=== PATIENT | male | born 1955 | race Caucasian/White ===

== ENCOUNTER 2024-02-13 08:26 | Outpatient (CLI) | payer BC, MEDICARE, SELFPAY ==
--- NOTE | ~2024-02-13 | MR_ITS ---
EXAMINATION: MR knee LT wo con DATE: 02/13/2024 09:09 INDICATION: Left knee pain TECHNIQUE: Magnetic resonance imaging (MRI) of the left knee was performed without intravenous contra st. Sequences included coronal PD-weighted FSE, coronal PD-weighted FS FSE, sagittal T2-weighted FSE , sagittal PD-weighted FS FSE and axial PD weighted fat saturated FSE. COMPARISON: None. FINDINGS: Medial compartment: Longitudinal horizontal tear medial meniscal tear extending to near the free edge at the lateral side of the posterior horn, transitioning to more peripherally along the inferior articular surface at th e medial side of the posterior horn, crossing over the free edge to contact the superior articular wilder rface more anteriorly at the meniscal body. There is peripheral displacement of a meniscal flap posit ion called to the tear plane where the flap extends into the inferior gutter along the medial rim of the medial tibial plateau. There is deep chondral fissuring with subtle cortical irregularity and min imal underlying subarticular edema-like signal change extending medial collateral across the junction of the anterior to central weightbearing medial femoral condyle at the level of the posterior horn o f the meniscus. Remaining articular cartilage is normal. Lateral compartment: There is lateral extrusion of the lateral meniscal body. There is a longitudinal horizontal tear exte nding to the inferior articular surface of the posterior horn and posterior body of the lateral menis cus. There are both ligaments of Humphry and Wrisberg arising from the posterior horn which extend me dially across anterior and posterior margins respectively of the posterior cruciate ligament. There i s deep chondral ulceration also extending transversely across the weightbearing lateral femoral condy le centered at the junction of the anterior and central portions. There is a small central subchondra l osteophyte within this region of chondral ulceration also overlying the posterior horn of the later al meniscus. Juxtaposed deep chondral fissuring with mild subarticular edema-like signal change under lying the posterior horn of the meniscus at the posterior aspect of the lateral tibial plateau. Patellofemoral compartment: Small region of deep chondral fissuring with mild subarticular edema-like signal change at the infero medial aspect of the lateral patellar facet. Remaining patellofemoral cartilage is normal. Ligaments and tendons: Posterior cruciate ligament is normal. The anterior cruciate ligament demonstrates a normal angle rel ative to Blumensaat line. It appears thickened with increased intrasubstance signal with a celery st alk appearance consistent with mucoid degeneration. There is a subtle wavy appearance to a few of t he ligament fibers and could not exclude superimposed partial tear. The medial collateral ligament an d fibular collateral ligament complex are normal. Mild patellar and distal quadriceps tendinopathy wi thout tear. The visualized medial and lateral hamstring tendons as well as the iliotibial band are no rmal. Fluid: Small left knee joint effusion femoral in the lateral gutter of the suprapatellar pouch. No loose ost eochondral bodies identified. Osseous/other: No fracture or pathologic marrow replacing process. IMPRESSION: 1. Medial and lateral meniscal tears. 2. 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 3. Thickening and prominent increased signal of the anterior cruciate ligament with appearance sugges ting mucoid degeneration. Although the ligament maintains a normal angle relative to Blumensaat line there are some wavy, lax appearing ligament fibers suggesting partial tear and would correlate with p hysical exam to assess for degree of residual functional integrity. Reviewed, dictated and finalized at location B. [employer] IMPRESSION: 1. Medial and lateral meniscal tears. 2. Mild tricompartmental osteoarthritis with small region of high-grade chondro malacia in all 3 compartments as detailed above. 3. Thickening and prominent increased signal of the anterior cruciate ligament with appearance suggesting mucoid degeneration. Although the ligament maintains a normal angle relative to Blumensaat line there are some wavy, lax appearing ligament fibers suggesting partial tear and would correlate with physical exam to assess for degree of residual functional integrity.
== END 2024-02-13 08:27 | disposition home or self-care (01) ==
LOC: GOSHIMG 08:29
PROVIDERS: PCP Orthopaedic Surgery Sports Medicine; Visit Provider Orthopaedic Surgery Sports Medicine
DX: M17.12 Unilateral primary osteoarthritis, left knee (principal); S83.282A Other tear of lateral meniscus, current injury, left knee, initial encounter; S83.242A Other tear of medial meniscus, current injury, left knee, initial encounter; X58.XXXA Exposure to other specified factors, initial encounter
CPT/HCPCS: 73721